=== PATIENT | male | born 1955 | race Caucasian/White ===

== ENCOUNTER → 2016-11-11 12:53 | Outpatient (CLI) | payer MEDICARE ==
--- NOTE | 2016-11-15 13:38 | EC ---
PATIENT:YAHIR ARIZA DATE OF SERVICE: 11/11/16 SEX: M MEDICAL RECORD: [id number] DATE OF : 55 LOCATION:[facility], [facility]–1983 AGE OF PATIENT: 61 ADMISSION DATE: 11/11/16 REFERRING PHYSICIAN: INTERPRETING PHYSICIAN: REGINE CRISTOBAL MD ECHOCARDIOGRAM REPORT ECHO CHARGES 4 ECHO COMPLETE CLINICAL DIAGNOSIS: CHF ECHOCARDIOGRAPHIC MEASUREMENTS (adult normal given) AC root (d.<3.7cm) 3.6 LV Septum d (<1.2 cm> 1.2 Valve Excursion 1.5 LV Septum (systole) 1.6 Left Atria (s.<4.0cm> 4.5 LVPW d(<1.2cm) 1.3 RV (d.<2.3cm) 3.1 LVPW (sytole) 2.0 LV diastole(<5.6CM) 7.3 MV E-F(>70mm/sec) LV systole 5.5 LVOT Diameter 2.0 MV exc.(>10mm) Est.ejection fraction (50-75%) Pericardial Effusion N DOPPLER: LVIT A 93.0 E 113 LA RVSP 38.0 LVOT 104 AOP1/2T Asc. Ao 168 RVOT 66.0 RA PA 114 AV Gradient Peak 11.3 AV Mean 4.6 AV Area 1.6 MV Gradient Peak 7.2 MV Mean 2.4 MV Area COMMENTS: Licensed Clinical Psychologist: Belinda CHEEMA Shallot Cleaner:Bryan Gray TAPE# PACS DATE OF SERVICE: 11/11/2016 Adequate 2D echo, color flow, spectral Doppler and M-Mode. Borderline LVH. LV internal dimensions are normal. Wall motion is mildly globally hypo with mildly reduced EF. Estimated EF at 30% to 35%. Aortic valve sclerosis without stenosis by Doppler interrogation. The left atrium is dilated at 4.5 cm. Mitral valve mildly thickened. Moderate MR. Right-sided chamber is grossly normal. Moderate TR. RV systolic pressure is estimated greater than or equal to 38 mmHg via the continuity equation. ECHOCARDIOGRAM REPORT [id number] YAHIR ARIZA TRANSINT:[id number] Voice Confirmation ID: [id number] DOCUMENT ID: [id number] 11/15/2016 Edited to correct date of service, dmm. REGINE CRISTOBAL MD at 1338 CC: [id number] DICTATION DATE: 11/13/16 0933 CHILDREN TEACHER: 11/13/16 1239 DEP CLI 11/11/16 [id number] [place] [address]
== END | disposition home or self-care (01) ==
LOC: D.ECHO 11-09 09:35
DX: I50.22 Chronic systolic (congestive) heart failure (principal)

== ENCOUNTER 2019-05-24 07:55 | Day surgery (SDC) | payer MEDICARE, OTHER ==
[~2019-05-24] VITALS: Ht 177.8 cm; Wt 91.2 kg
--- NOTE | ~2019-05-24 | OP ---
PATIENT NAME: YAHIR ARIZA MEDICAL RECORD: [id number] :55 LOCATION:[facility] ADMISSION DATE: SURGEON: CLAUDIA JETT MD DATE OF OPERATION: 05/24/2019 REFERRED BY: Bonnie Cramer DO PREOPERATIVE DIAGNOSES: End-stage renal disease and dependence on hemodialysis. POSTOPERATIVE DIAGNOSES: End-stage renal disease and dependence on hemodialysis. OPERATION PERFORMED: Creation of a right radiocephalic arterial venous fistula. SURGEON: Claudia Jett MD ANESTHESIA: Regional nerve block plus MAC per BOTTOM HOOP DRIVER. PREOPERATIVE NOTE: Mr. Ariza is a 64-year-old white male from [place], who has begun dialysis with the [facility]. He needs a long-term dialysis access. He is brought to the operating room at this time for planned fistula on the right upper extremity. Under anesthesia, the patient was placed in supine position, prepped and draped in a sterile manner. Topical nitroglycerin paste was applied to the skin of the arm and forearm and a Jm drain used as a proximal venous tourniquet. I examined him with Duplex ultrasound and noted that the cephalic vein at the wrist was a suitable vessel as was the radial artery there and the vein was widely patent all the way up the arm to the deltopectoral groove. We elected to go ahead with RC Jairo fistula as planned. A longitudinal incision was placed over the radial artery, and the radial artery and the cephalic vein dissected from the surrounding structures. Tributaries of these were treated with electrocautery or fine Hemoclips. The vessels were treated with topical papaverine. The artery was controlled proximally and distally with Silastic loops, doubly looped. The vein was ligated distally, transected and bevelled and it was then flushed with heparinized saline and hydrostatically dilated and clamped. The artery was occluded with Silastic loops. An arteriotomy about 6 mm in length was made and the vein was anastomosed end-of-vein to [id number] with running 7-0 Prolene. When completed, the suture line was hemostatic and excellent flow developed within the fistula immediately with release of the arterial occluding loops. The wound was irrigated with saline and closed with interrupted inverted 3-0 Vicryl and running intracuticular 4-0 Stratafix and Dermabond glue. It was dressed with Maxorb Ag, Tegaderm, and Cavilon skin prep, and the patient was awakened from his sedation and taken to the recovery room the operation having been tolerated well. PLAN: The patient is given a prescription for tramadol and an appointment scheduled for him to come back and see me next week for followup. He is to leave the initial operative dressing intact and keep it dry and clean and he is to call me if he has any problems and should he need to see me sooner. Blood loss during the operation was minimal, 2 cc perhaps. Sponges, instruments, and needles were accounted for. No drain was used and no surgical specimen was submitted for histopathology. OPERATIVE REPORT [id number] TOYAHIR HO TRANSINT:[id number] Voice Confirmation ID: [id number] DOCUMENT ID: [id number] CLAUDIA JETT MD CC: BONNIE CRAMER DO [id number] DICTATION DATE: 05/28/191705 FABRIC SEPARATOR OPERATOR: 05/28/[address] [facility] 05/24/19 [facility] [address] [place] [address]
[2019-05-24 08:25] LABS: INR 1.22 (0.85-1.17); PROTIME 14.9 SECONDS (11.6-15.0)
[2019-05-24 08:26] LABS: ANION GAP 10.9 mmol/L (8-16); CALCIUM 9.6 mg/dL (8.5-10.1); CARBON DIOXIDE 29.4 mmol/L (21.0-32.0); CREATININE - SERUM 3.8 mg/dL (0.6-1.3); POTASSIUM - SERUM 4.3 mmol/L (3.5-5.1)
[2019-05-24 08:42] LABS: BASOPHILS 0.7 % (0-2); EOSINOPHILS 3.4 % (0-7); HEMATOCRIT 35.7 % (42.0-54.0); HEMOGLOBIN 11.8 g/dL (13.5-17.5); IMMATURE GRANULOCYTES 0.3 % (0-5); MCH 31.4 pg (26.0-34.0); MCHC 33.1 g/dL (31.0-37.0); MCV 94.9 fL (80.0-100.0); MEAN PLATELET VOLUME 9.5 fL (7.4-10.4); MONOCYTES 6.8 % (2-11); NEUTROPHILS 67.8 % (40-80); PLATELET COUNT 264 10x3/uL (130-400); RBC 3.76 10x6/uL (4.20-6.10); RDW 13.9 % (11.5-14.5); WBC 7.7 10x3/uL (4.8-10.8)
[2019-05-24] MEDS ORDERED: HYDROCODON-ACE1 EA10 PO (09:57)
[2019-05-24] MEDS ORDERED: COREG12.5 MG PO (09:58)
[2019-05-24] MEDS ORDERED: [UNRECOGNIZED DRUG - OTHER] (09:59)
[2019-05-24] MEDS ORDERED: [UNRECOGNIZED DRUG - OTHER] (09:59)
[2019-05-24] MEDS ORDERED: PRALUENT P75 MG/1 ML (09:59)
[2019-05-24] MEDS ORDERED: NOVOLOG100 UNIT/1 (10:00)
[2019-05-24] MEDS ORDERED: ZETIA10 MG (10:01)
[2019-05-24] MEDS ORDERED: COUMADIN4 MG PO (10:01)
[2019-05-24] MEDS ORDERED: PEPCID AC20 MG PO (10:02)
[2019-05-24] MEDS ORDERED: BUMEX2 MG (10:02)
[2019-05-24] MEDS ORDERED: PLAVIX75 MG PO (10:03)
[2019-05-24] MEDS ORDERED: LIPITOR40 MG PO (10:03)
[2019-05-24] MEDS ORDERED: FLOMAX0.4 MG PO (10:04)
[2019-05-24] MEDS ORDERED: FENOFIBRATE160 MG PO (10:04)
[2019-05-24 10:26] VITALS: BP 124/73; Ht 177.8 cm; Wt 91.2 kg
[2019-05-24] MEDS ORDERED: ULTRAM50 MG PO (15:13)
--- NOTE | 2019-05-24 17:00 | NUR ---
1532-REC'D FROM RR. AWAKE AND ALERT.DENIES PAIN.VSS.LEFT ARM IN SLING,DRESSING CDI,CAP REFILL WNL,FINGERS WARM TO TOUCH. ABLE TO PALPATE THRILL AND AUSCULATE BRUIT. ICE WATER AT BEDSIDE,CL IN EASY REACH. FRIEND AT BEDSIDE. REVIEWED DISCHARGE CRITERIA.VERBALIZED UNDERSTANDING.
--- NOTE | 2019-05-24 17:02 | NUR ---
1555-FULL LIQUID TRAY TO ROOM.DENIES PAIN.PLEASANT AND COOPERATIVE WITH CARE.
--- NOTE | 2019-05-24 17:03 | NUR ---
1615-TOLERATED TRAY.VSS.DENIES PAIN.SLING IN PLACE,DRESSING CDI. CAP REFILL WNL. UNABLE TO MOVE LUE DUE TO BLOCK. ABLE TO PALPATE THRILL AND AUSCULATE BRUIT. VERY PLEASANT WITH CARE. REMOVED IV FROM RIGHT HAND WITH CATH INTACT,DISPOSED INTO SHARPS.COVERED SITE WITH GUAZE AND SECURED WITH MEDIPORE TAPE.
--- NOTE | 2019-05-24 17:08 | NUR ---
1625-DISCHARGE CRITERIA MET. REVIEWED POST OPERATIVE INSTRUCTIONS AND TO CALL DR JETT'S OFFICE ON MONDAY TO MAKE A FOLLOW UP 10-14 DAYS OUT. VERBALIZED UNDERSTANDING WITHOUT FURTHER QUESTIONS OR CONCERNS.ESCORTED OUT VIA W/C WITH FRIEND AWAITING TO DRIVE HOME. STABLE, SLING IN PLACE,DRESSING CDI. DISCHARGE PAPERWORK IN HAND
--- NOTE | 2019-05-24 17:30 | NUR ---
1625-PT REPORTS HE HAS HYDROCODONE AND TRAMADOL PRESCRIPTIONS AT HOME HE DID NOT NEED TO FILL THE SCRIPT WRITTEN BY MALIHA. NOTIFIED CHARGE NURSE WELL TO DISPOSE SCRIPT
== END 2019-05-24 16:25 | disposition home or self-care (01) ==
LOC: D.OPS 07:55
PROVIDERS: ATTEND Internal Medicine
DX: N18.6 End stage renal disease (principal); I25.10 Atherosclerotic heart disease of native coronary artery without angina pectoris